=== PATIENT | female | born 1970 | race Caucasian/White ===

== ENCOUNTER 2017-10-04 05:16 | Emergency (ER) | payer BC ==
[~2017-10-04] VITALS: Ht 162.6 cm; Wt 81.6 kg
--- NOTE | 2017-10-04 06:00 | NUR ---
pt aaox4, ambulated to ED with c/o chest x4 days. she states she is not sure if it may be her ribs. pt speaks in clear and complete sentences. pt able to verbalize needs. pt in no acute distress at this time.
[2017-10-04 06:40] LABS: BASOPHILS % (AUTO) 0.6 % (0.0-2.0); EOSINOPHILS # (AUTO) 0.2 K/uL (0.0-0.7); EOSINOPHILS % (AUTO) 2.5 % (0.0-7.0); HEMATOCRIT 37.3 % (31.2-41.9); HEMOGLOBIN 12.5 g/dL (10.9-14.3); LYMPHOCYTES # (AUTO) 2.2 K/uL (20.0-40.0); LYMPHOCYTES % (AUTO) 29.3 % (20.5-51.5); MEAN CORPUSCULAR HEMOGLOBIN 28.8 uug (24.7-32.8); MEAN CORPUSCULAR HGB CONC 34 g/dL (32.3-35.6); MONOCYTES # (AUTO) 0.5 K/uL (2.0-10.0); MONOCYTES % (AUTO) 6.9 % (0.0-11.0); NEUTROPHILS # (AUTO) 4.5 K/uL (1.8-8.9); NEUTROPHILS % (AUTO) 60.7 % (38.5-71.5); PLATELET COUNT (AUTO) 230 K/uL (179-408); RED BLOOD CELL COUNT(AUTO) 4.33 MIL/uL (3.63-4.92); WHITE BLOOD COUNT (AUTO) 7.4 K/uL (3.8-11.8)
[2017-10-04 07:04] LABS: CARBON DIOXIDE 28 mmol/L (21-32); CHLORIDE 108 mmol/L (98-107); CREATININE 0.9 mg/dL (0.6-1.3); GLUCOSE 91 mg/dL (74-106); UREA NITROGEN, BLOOD 12 mg/dL (7-18)
[2017-10-04 07:11] LABS: ALANINE AMINOTRANSFERASE 52 U/L (14-59); ALKALINE PHOSPHATASE 94 U/L (50-136); ASPARTATE AMINOTRANSFERASE 34 U/L (15-37); BILIRUBIN,DIRECT < 0.1 mg/dL (0.0-0.2); BILIRUBIN,TOTAL 0.1 mg/dL (0.2-1.0); TOTAL PROTEIN, SERUM 6.7 g/dL (6.4-8.2)
--- NOTE | 2017-10-04 07:14 | NUR ---
Patient discharged to home in stable conditon. Written and verbal after care instructions given. Patient verbalizes understanding of instructions. pt walked out of ED with steady gait. no acute distress
== END 2017-10-04 07:15 | disposition home or self-care (01) ==
LOC: ER 05:22
DX: R07.89 Other chest pain (principal); F11.10 Opioid abuse, uncomplicated; B19.20 Unspecified viral hepatitis C without hepatic coma; Z74.01 Bed confinement status
CPT/HCPCS: 36415; 70030-TC; 71045; 85025; 85730; 93005; A4663

== ENCOUNTER 2024-07-22 18:50 | Emergency (ER) | payer BC, MEDICAID ==
[~2024-07-22] VITALS: Ht 165.1 cm; Wt 61.2 kg
[2024-07-22 20:19] VITALS: O2SAT 98
[2024-07-22] MEDS ORDERED: AMOX-430 PO (20:39)
[2024-07-22] MEDS ORDERED: CHLO473M5 PO (20:39)
[2024-07-22] MEDS: AMOXICILLIN-CLAVUL 875-125MG TABLET PO ONE (20:41)
== END 2024-07-22 19:49 | disposition left against medical advice (07) ==
LOC: ER 18:50
DX: J02.9 Acute pharyngitis, unspecified (principal); F17.200 Nicotine dependence, unspecified, uncomplicated; Z79.899 Other long term (current) drug therapy
CPT/HCPCS: A4606; A4663